=== PATIENT | male | born 1935 | race Caucasian/White ===

== ENCOUNTER 2018-04-10 05:31 | Inpatient (IN) ==
[2018-04-10] MEDS ORDERED: Metoprolol Tartrate 25 MG Tablet PO ONE (06:10)
[2018-04-10] MEDS ORDERED: Chlorhexidine Gluconate 2% 1 Pack (2 Cloths) TOPICAL ONE (06:10)
[2018-04-10] MEDS ORDERED: Sodium Chlor 0.9% Inj 500 ML IV.SIG SCH (07:00)
--- NOTE | 2018-04-10 07:27 | P.HPVS ---
History of Present Illness Chief Complaint: AAA History of Present Illness: 83 yo male with AAA that is intact and from which he is asymptomatic. He presents for EVAR. 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 - Inpatient Certification If this patient has been admitted as an Inpatient: I certify that the inpatient services were ordered in accordance with Medicare regulations governing the order. This includes certification that hospital inpatient services are reasonable and necessary and in the case of services not specified as inpatient-only under 42 CFR 419.22(n), that they are appropriately provided as inpatient services in accordance to with the 2-midnight benchmark under 43 CFR 412.3(e) Review of Systems Constitutional: Denies chills, Denies fever(s) PMFSH - History History Provided By: Patient - Medical History Medical History: Medical History (Last Updated 04/10/18 @ 07:24 by Cristofer Gregory MD) GERD (gastroesophageal reflux disease) Hypertension Thoracic aortic aneurysm without rupture Aneurysm - Surgical History Surgical History: Surgical History (Last Reviewed 04/10/18 @ 06:19 by Jessie Brooks) History of endovascular stent graft for abdominal aortic aneurysm (AAA) Hx of cataract removal with insertion of prosthetic lens Hx of inguinal hernia repair Hx of umbilical hernia repair - Tobacco History Second Hand Smoke Exposure: No Tobacco Use In Past 30 Days: No Smoking Status: Former smoker Tobacco Type: Cigarettes - Alcohol History How Often Do You Have a Drink Containing Alcohol: 4 or more times a week - Substance Use History Substance History: No History of Abuse - Travel History Recent Travel in the [place] Within the Last 8 Weeks: No Recent Travel Out of the Country Within the Last 8 Weeks: Yes Medications and Allergies Active Medications: Active Medications Lactated Ringer's (Lr 1000 Ml Inj) 1,000 mls @ 30 mls/hr IV.SIG .Q24H KARY Stop: 04/11/18 06:14 Last Admin: 04/10/18 06:50 Dose: 30 mls/hr Sodium Chloride (Ns Inj) 500 mls @ 30 mls/hr IV.SIG .Q10H KARY Last Admin: 04/10/18 07:21 Dose: Not Given Allergies Allergy/AdvReac Type Severity Reaction Status Date / Time bee venom protein (honey bee) Allergy Severe Swelling Verified 04/10/18 06:11 [Bee sting] erythromycin base Allergy Severe Blister Verified 04/10/18 06:11 Home Medications Medication Instructions Recorded Confirmed Type amlodipine 5 mg PO DAILY 04/09/18 04/10/18 History cyanocobalamin (vitamin B-12) 1 tab PO DAILY 04/09/18 04/10/18 History metoprolol tartrate 25 mg PO DAILY 04/09/18 04/10/18 History omeprazole 20 mg PO DAILY 04/09/18 04/10/18 History pravastatin 40 mg PO DAILY 04/09/18 04/10/18 History lopwvay-drpjztjuhrqgq-ztfvvezb 2 tab PO Q6H PRN 04/10/18 04/10/18 History [Excedrin Migraine] Physical Exam Vital Signs / I&O: Vital Signs 04/10/18 06:27 Temperature 98.2 F Pulse Rate 73 Respiratory Rate 20 Blood Pressure 142/81 H Pulse Oximetry 96 Intake & Output 04/09/18 04/10/18 04/10/18 18:59 06:59 18:59 Weight 93.2 kg 93.2 kg Other: Weight On Admission 93.2 kg Neuro: alert, no distress HEENT: NC/AT Neck: no JVD Heart: reg rate Lungs: clear Abdomen: nontender Caprini VTE Risk Assessment Caprini VTE Risk Assessment: No/Low Risk (score <= 1) (intra-op heparin) Caprini Risk Assessment Model: Point Value = 1 Point Value = 2 Point Value = 3 Point Value = 5 Age 41-60 Minor surgery BMI > 25 kg/m2 Swollen legs Varicose veins or History of unexplained or recurrent spontaneous Oral contraceptives or hormone replacement Sepsis (< 1 month) Serious lung disease, including pneumonia (< 1 month) Abnormal pulmonary function Acute myocardial infarction Congestive heart failure (< 1 month) History of inflammatory bowel disease Medical patient at bed rest Age 61-74 Arthroscopic surgery Major open surgery (> 45 min) Laparoscopic surgery (> 45 min) Malignancy Confined to bed (> 72 hours) Immobilizing plaster cast Central venous access Age >= 75 History of VTE Family history of VTE Factor V Leiden Prothrombin [id number] Lupus anticoagulant Anticardiolipin antibodies Elevated serum homocysteine Heparin-induced thrombocytopenia Other congenital or acquired thrombophilia Stroke (< 1 month) Elective arthroplasty Hip, pelvis, or leg fracture Acute spinal cord injury (< 1 month) Prophylaxis Regimen: Total Risk Factor Score Risk Level Prophylaxis Regimen 0-1 Low Early ambulation 2 Moderate Order ONE of the following: *Sequential Compression Device (SCD) *Heparin 5000 units SQ BID 3-4 Higher Order ONE of the following medications: *Heparin 5000 units SQ TID *Enoxaparin/Lovenox 40 mg SQ daily (WT < 150 kg, CrCl > 30 mL/min) *Enoxaparin/Lovenox 30 mg SQ daily (WT < 150 kg, CrCl > 10-29 mL/min) *Enoxaparin/Lovenox 30 mg SQ BID (WT < 150 kg, CrCl > 30 mL/min) AND/OR *Sequential Compression Device (SCD) 5 or more Highest Order ONE of the following medications: *Heparin 5000 units SQ TID (Preferred with Epidurals) *Enoxaparin/Lovenox 40 mg SQ daily (WT < 150 kg, CrCl > 30 mL/min) *Enoxaparin/Lovenox 30 mg SQ daily (WT < 150 kg, CrCl > 10-29 mL/min) *Enoxaparin/Lovenox 30 mg SQ BID (WT < 150 kg, CrCl > 30 mL/min) AND *Sequential Compression Device (SCD) Assessment and Plan - Assessment (1) AAA (abdominal aortic aneurysm) without rupture Code(s): I71.4 - Abdominal aortic aneurysm, without rupture Status: Acute - Plan 1. Spinal drain pre-op with IR (Dr. Dhillon) 2. EVAR today 3. Post op to [facility] for spinal cord protocol drain x24h with q1h neuro checks narcan gtt x 48h steroids perioperatively Pt and family understand the risks of the procedure and agree to proceed. To OR. Parada () [phone]
[2018-04-10] MEDS ORDERED: fentaNYL Citrate Inj 250 MCG/5 ML Ampul ONE (08:00)
[2018-04-10] MEDS ORDERED: ceFAZolin 2 GM Premix Inj 2 GM/50 ML PIGGYBACK IV.SIG ONE (08:16)
--- NOTE | 2018-04-10 08:29 | P.RAD ---
Post Procedure Progress Note - Pre Procedure Diagnosis (1) AAA (abdominal aortic aneurysm) without rupture - Post Procedure Diagnosis (1) AAA (abdominal aortic aneurysm) without rupture - Procedure Information Procedure Date: 04/10/18 Supervising Radiologist: Frankie Dhillon MD Estimated blood loss (mL): 0 Anesthesia: Conscious Sedation - Plan of Activity Patient to Unit: ROPU Patient Condition: Good See PACS Report for procedural detail/treatment.
--- NOTE | 2018-04-10 09:04 | IR ---
EXAM DATE: 04/10/2018 8:44 AM EST AGE/SEX: 83 years / Male INDICATIONS: Patient with thoracic aortic aneurysm in need of pre-op lumbar drain. CLINICAL DATA: This is the patient's initial encounter. Patient reports that signs and symptoms have been present for 1 day and indicates a pain score of 0/10. Location: , Laterality: MEDICAL/SURGICAL HISTORY: Hypertension. Gastroesophageal reflux disease. TAA w/o rupture, AAA Inguinal hernia repair. Umbilical hernia repair. AAA with stent graft repair COMPARISON: No prior exams available for comparison. FLUORO TIME (min): 0.7 IMAGE SERIES: 2 ACCESS SITE: L3-4 SEDATION TIME (min): 20 LUMBAR PUNCTURE TIME: 0816 hours MEDICATION(S): 1.5mg midazolam (Versed) IV 75mcg fentanyl (Sublimaze) IV DEVICE(S): 5 Cambodian lumbar drain catheter catheter tip placement T10 . . PROCEDURE: 1. Fluoroscopically guided lumbar drain placement. 2. Conscious sedation with continuous EKG and oximetry monitoring. The risks, benefits and alternatives to the procedure were explained and verbal and written consent w as obtained. The site was prepped in sterile fashion. Full sterile technique was used, including ca p, mask, sterile gloves and gown and a large sterile sheet. Hand hygiene and 2% chlorhexidine and/or betadine/alcohol prep was utilized per protocol for cutaneous antisepsis. The skin and subcutaneous tissues were infiltrated with local anesthetic solution. With fluoroscopic guidance the lumbar thecal sac was punctured with a 14 gauge Touhy needle and a lum bar drain was placed with its tip at the level as described above and the catheter was sutured in linda ce. CSF was identified returning from the catheter at the termination of the procedure. Conscious sedation was performed with the prescribed dosages and duration as above in the presence of an independent trained radiology nurse to assist in the monitoring of the patient. EKG and oximetry remained stable throughout the procedure. The patient tolerated the procedure well and there were n o complications. The patient was sent to post anesthesia recovery in stable condition. CONCLUSION: 1. Uncomplicated lumbar drain placement as above. Electronically signed by: Frankie Dhillon MD 04/10/2018 9:03 AM EST
[2018-04-10] MEDS ORDERED: Heparin 10,000 UNITS/10 ML Vial (for IV use) ONE (10:01)
[2018-04-10] MEDS ORDERED: ceFAZolin 1 GM Premix Inj 0 GM/0 ML FROZ.PIGGY IV.SIG ONE (10:01)
[2018-04-10] MEDS ORDERED: Protamine Sulfate Inj 50 MG/5 ML Vial ONE (10:01)
[2018-04-10] MEDS ORDERED: Heparin/NS PF Inj 500 ML ONE (10:01)
[2018-04-10] MEDS ORDERED: Naloxone Inj 0.4 MG/ML Vial ONE ×4 (10:11→11:22)
[2018-04-10] MEDS ORDERED: MethylPREDNISolone Sod Succinate Inj 125 MG/2 ML Vial ONE (10:46)
[2018-04-10] MEDS ORDERED: Iohexol 300 MG/ML 50 ML Vial (for Rad Diag) IVCONTRAST ONE (11:52)
[2018-04-10] MEDS ORDERED: Bisacodyl 10 MG Supp RECTAL PRN (12:03)
--- NOTE | 2018-04-10 12:03 | P.OP ---
- Preoperative Diagnosis (1) AAA (abdominal aortic aneurysm) without rupture - Postoperative Diagnosis (1) AAA (abdominal aortic aneurysm) without rupture Date of procedure: 04/10/18 Procedure: 1. EVAR ([id number] w 2 docking limbs) 2. R FINAL CANOE INSPECTOR Perclose (20F) 3. L FINAL CANOE INSPECTOR Perclose (14F) Implants: [employer] Zenith: 32-96, 16-74, 16-54 Surgeon: Cristofer Gregory MD Estimated blood loss (mL): 100 IV fluids (mL): 1,200 Urine output (mL): 160 Operation and Findings: successful repair of AAA + Doppler signals after B groin closure
[2018-04-10] MEDS ORDERED: fentaNYL Citrate Inj 100 MCG/2 ML Ampul ONE (12:52)
[2018-04-10] MEDS ORDERED: *Meperidine Inj 25 MG/ML Vial PERIprocedural Use ONLY ONE (13:18)
--- NOTE | 2018-04-10 17:24 | MP ---
cc: Cristofer Gregory MD DATE OF OPERATION: 04/10/2018 PREOPERATIVE DIAGNOSIS: Abdominal aortic aneurysm. POSTOPERATIVE DIAGNOSIS: Abdominal aortic aneurysm. PROCEDURE: 1. Endovascular exclusion of the abdominal aortic aneurysm with an aortobiiliac bifurcated device. 2. Right common femoral Perclose (20-Fijian). 3. Left common femoral Perclose (14-Fijian). ATTENDING SURGEON: Cristofer Gregory MD TESTER OPERATOR SURGEON: None. ANESTHESIA: General. INDICATIONS FOR PROCEDURE: Mr. Guzman is an 83-year-old gentleman with abdominal aortic aneurysm. He has a previous history of a thoracic stent and is taken to the operating room for endovascular AAA repair. Preoperatively, he had a spinal drain placed to decrease the chance of spinal cord ischemia. DESCRIPTION OF PROCEDURE: Informed consent was obtained. The patient was taken to the operating room and placed supine on the operating table. An appropriate timeout was taken to ensure the patient's identity, operative site and planned procedure. The administration of 2 grams of Ancef was initiated prior to skin incision and will be discontinued after single preoperative dose. Everyone in the room agreed with the timeout and we proceeded. He was prepped from his nipples to knees. Then, 21-gauge micropuncture needles were used to access both common femoral arteries. These were changed using Seldinger technique for a micropuncture sheath, through which a 0.035 STORQ wire was introduced and the micropuncture sheath was exchanged for a 5-Fijian sheath, which was used to dilate the skin and subcutaneous tract arteriotomy. Two Perclose ProGlide sutures were inserted into each groin and tagged. These were not tied down, but would be used later. An 8 x 10 cm sheath was placed on the right hand side. An 8 x 25 cm sheath was placed in the left hand side. The patient was systemically heparinized with 8000 units of IV heparin and throughout the remainder of the case, ACT was confirmed to be greater than 250. A catheter was placed up the right hand STORQ wire and the STORQ wire exchanged for a Lunderquist. Over the left hand STORQ wire, a marker straight Flush catheter was placed. The 8-Fijian sheath on the right was removed. Zana dilator was used to dilate the skin and subcutaneous tract and arteriotomy, and the main device, which was a PandaDoc 32 x 96 was introduced and oriented in the appropriate fashion. Interval aortogram showed the location of the renal arteries and the device was deployed so the proximal aspect of the fabric was immediately caudal to the renal arteries. The device was deployed down to the contralateral gate and then interval angiograms were performed to locate the renal arteries. The top cap for deploying the suprarenal bare stent was then deployed without difficulty. A Roadrunner wire and Cobra catheter were then used up the left hand side and exchanged for the Flush catheter and these were used to cannulate the contralateral gate, which was confirmed with an angiogram. A Lunderquist wire was then placed through the Cobra catheter and a marker catheter was then used and exchanged for the Cobra catheter to locate the left hypogastric artery. The contralateral limb, which was a 16 x 74 was introduced with sufficient overlap and deployed without difficulty. The remainder of the deployment system was removed, leaving the 14-Fijian sheath in the left hand side. The remainder of the Mynx system was then deployed and the top cap was recaptured. A marker catheter was placed through the 20-Fijian sheath on the right hand side through which the Mynx device had been deployed and the location of the right hypogastric artery was identified. The extension limb on the right, which was a 16 x 56 was then introduced and deployed so that there was sufficient overlap between it and the main graft as well as perfusion of the right hypogastric artery. The proximal and distal end, as well as all junctions were ballooned with a Coda balloon, and the completion angiogram showed excellent result with only a very sluggish type 1 endoleak. There was good apposition of the stent graft, both proximally and distally. The wires, catheters, and sheaths were removed and the groin Perclose were tied down. Hemostasis was achieved in the groins and there were dopplerable signals in the feet. The heparin was reversed with protamine. 4-0 Monocryl was placed in both groin incisions and the patient was then transported to recovery room in stable condition. I was present and scrubbed, and performed the entire procedure. MD RAUL Menard/aidan , 04:15 PM , 04:27 PM
--- NOTE | 2018-04-10 17:55 | P.CONCC ---
History of Present Illness Service: Critical care medicine Consult date: 04/10/18 Requesting Physician: Cristofer Gregory Reason for Consult: perioperative management of medical comorbidities Primary Care Provider: Azeem MD Art History of Present Illness: This is an 83-year-old male with aortic aneurysmal disease with prior endovascular stenting who presents for redo endovascular stenting. Preoperatively he underwent prophylactic lumbar spinal drain placement which was uncomplicated. He underwent uncomplicated endovascular aortic repair. He arrives to the recovery room in stable and extubated condition, arousing from anesthesia. Due to his arousal from anesthesia a complete review of systems is unobtainable. Limited review of systems is negative for chest pain, shortness of breath, headache, nausea, vomiting, sore throat. He denies weakness in his lower extremities. He has bilateral palpable pulses. He has a radial arterial line in place and a spinal drain in place draining clear CSF. Remainder the review systems is negative due to somnolence from anesthesia. Review of Systems unobtainable due to mental status (Arousing from anesthesia) PMFSH - History History Provided By: Patient, Medical Record - Medical History Medical History: Medical History (Last Reviewed 04/10/18 @ 17:50 by Brandt Waller MD) GERD (gastroesophageal reflux disease) Hypertension Thoracic aortic aneurysm without rupture Aneurysm - Surgical History Surgical History: Surgical History (Last Reviewed 04/10/18 @ 17:50 by Brandt Waller MD) Hx of cataract removal with insertion of prosthetic lens Hx of inguinal hernia repair Hx of umbilical hernia repair - Family History Family History: Family History (Last Updated 04/10/18 @ 17:50 by Brandt Waller MD) Other Family history non-contributory - Social History I have reviewed the patient's Social History: Yes - Tobacco History Second Hand Smoke Exposure: No Tobacco Use In Past 30 Days: No Smoking Status: Former smoker Tobacco Type: Cigarettes - Alcohol History How Often Do You Have a Drink Containing Alcohol: 4 or more times a week - Substance Use History Substance History: No History of Abuse - Travel History Recent Travel in the [place] Within the Last 8 Weeks: No Recent Travel Out of the Country Within the Last 8 Weeks: Yes Medications and Allergies Active Medications: Active Medications Al Hydroxide/Mg Hydroxide (Milk Of Magnesia Liq) 30 ml PO Q12H PRN PRN Reason: Mild Constipation Aspirin (Aspirin Chew) 81 mg PO DAILY KARY Bisacodyl (Dulcolax Supp) 10 mg RECTAL DAILY PRN PRN Reason: SEVERE CONSITIPATION Famotidine (Pepcid) 20 mg PO BID [facility] Heparin Sodium (Porcine) (Heparin Inj) 5,000 units SQ Q8H [facility] Hydromorphone HCl (Dilaudid) 2 mg PO Q4H PRN PRN Reason: PAIN SCALE 6 TO 10 Lactated Ringer's (Lr 1000 Ml Inj) 1,000 mls @ 30 mls/hr IV.SIG .Q24H [facility] Stop: 04/11/18 06:14 Last Admin: 04/10/18 06:50 Dose: 30 mls/hr Sodium Chloride (Ns Inj) 500 mls @ 30 mls/hr IV.SIG .Q10H [facility] Last Admin: 04/10/18 07:21 Dose: Not Given Naloxone HCl 4 mg/ Dextrose 250 mls @ 5.62 mls/hr IV.CONT CONT PRN PRN Reason: ABDOMINAL PAIN Lactulose (Lactulose Liq) 30 ml PO DAILY PRN PRN Reason: SEVERE CONSITIPATION Miscellaneous Information (Misc Nursing Information) 0 each OTHER UNSCH PRN PRN Reason: SEE LABEL COMMENTS Stop: 04/11/18 13:18 Oxycodone HCl (Roxicodone) 5 mg PO Q4H PRN PRN Reason: PAIN SCALE 1 TO 5 Pravastatin Sodium (Pravachol) 40 mg PO DAILY [facility] Senna/Docusate Sodium (Jing-Colace) 1 tab PO BID [facility] Sennosides (Senokot) 17.2 mg PO Q12H PRN PRN Reason: Moderate Constipation Allergies Allergy/AdvReac Type Severity Reaction Status Date / Time bee venom protein (honey bee) Allergy Severe Swelling Verified 04/10/18 06:11 [Bee sting] erythromycin base Allergy Severe Blister Verified 04/10/18 06:11 Home Medications Medication Instructions Recorded Confirmed Type amlodipine 5 mg PO DAILY 04/09/18 04/10/18 History cyanocobalamin (vitamin B-12) 1 tab PO DAILY 04/09/18 04/10/18 History metoprolol tartrate 25 mg PO DAILY 04/09/18 04/10/18 History omeprazole 20 mg PO DAILY 04/09/18 04/10/18 History pravastatin 40 mg PO DAILY 04/09/18 04/10/18 History qlngtmh-iorsxbcwbwbll-utgmzzpp 2 tab PO Q6H PRN 04/10/18 04/10/18 History [Excedrin Migraine] Physical Exam Vital signs: Vital Signs 04/10/18 06:27 04/10/18 08:45 04/10/18 09:15 Temperature 36.8 C 36.4 C Pulse Rate 73 72 73 Respiratory Rate 20 18 20 Blood Pressure 142/81 H 121/78 107/73 Pulse Oximetry 96 91 L 92 L 04/10/18 12:25 04/10/18 12:30 04/10/18 12:45 Temperature 36.3 C L Pulse Rate 55 L 62 56 L Respiratory Rate 20 20 18 Blood Pressure 137/70 172/74 H 142/82 H Pulse Oximetry 92 L 93 L 93 L 04/10/18 13:00 04/10/18 13:15 04/10/18 13:25 Temperature Pulse Rate 58 L 53 L Respiratory Rate 20 19 Blood Pressure 133/73 141/75 H Pulse Oximetry 96 96 96 04/10/18 13:30 04/10/18 14:00 04/10/18 14:15 Temperature 36.1 C L Pulse Rate 56 L 55 L 60 Respiratory Rate 21 18 17 Blood Pressure 135/72 135/74 149/78 H Pulse Oximetry 96 95 95 04/10/18 14:47 04/10/18 14:52 04/10/18 15:00 Temperature Pulse Rate 64 59 L Respiratory Rate 20 Blood Pressure 156/79 H 137/74 Pulse Oximetry 04/10/18 15:05 04/10/18 15:20 04/10/18 15:35 Temperature 36.5 C Pulse Rate 62 65 64 Respiratory Rate 22 19 18 Blood Pressure 145/80 H 138/74 137/80 Pulse Oximetry 93 L 91 L 94 L 04/10/18 15:50 04/10/18 16:00 04/10/18 16:05 Temperature Pulse Rate 65 66 68 Respiratory Rate 23 19 26 H Blood Pressure 139/79 137/71 Pulse Oximetry 93 L 94 L 95 04/10/18 16:20 04/10/18 16:35 04/10/18 16:50 Temperature Pulse Rate 68 66 67 Respiratory Rate 34 H 25 H 19 Blood Pressure 161/70 H 143/77 H 145/76 H Pulse Oximetry 92 L 96 95 04/10/18 17:00 04/10/18 17:05 04/10/18 17:20 Temperature Pulse Rate 66 69 79 Respiratory Rate 16 20 25 H Blood Pressure 142/79 H 143/81 H Pulse Oximetry 96 96 96 Intake & Output 04/09/18 04/10/18 04/10/18 18:59 06:59 18:59 Intake Total 1750 / 1750 Output Total 470 / 470 Balance 1280 / 1280 Weight 93.2 kg 93.2 kg Intake: IV 50 / 50 Heparin/NS PF Inj 500 ML @ 0 0 / 0 mls/hr .ROUTE .[facility] Rx#: [id number] Ancef 2 GM Premix Inj 2 gm In 50 / 50 50 ml @ 0 mls/hr IV.SIG .[facility] Rx#:[id number] Anesthesia Amount 1700 / 1700 Output: Estimated Blood Loss 100 / 100 Urine Amount (Catheter) 360 / 360 Indwelling Urethral Catheter 360 / 360 Wound Drainage # 1 Back Lumbar Other: Date of Last Bowel Movement 04/08/18 Weight On Admission 93.2 kg Narrative: GENERAL: Elderly male, lying in bed, arousing from anesthesia HEENT: Normocephalic. Atraumatic. Pupils equal, round, reactive, conjugate. Mucous membranes are moist NECK: Trachea is midline. There is no JVD. CHEST: Equal chest rise. Unlabored. Nasal cannula oxygen. CARDIOVASCULAR: Normal rate, regular balloon. Sinus. Arterial line in place, site clean dry and intact. ABDOMEN: Soft, nontender, nondistended. No guarding. MUSCULOSKELETAL: Pulses 2+. No peripheral edema. Groin site clean dry and intact without evidence of hematoma. Lumbar drain in place draining clear CSF. NEUROLOGICAL: RASS -2. Arousing from anesthesia. No focal deficits. Muscular skeletal strength 5/5 in all 4 extremities, and particularly in bilateral lower extremities. - Urinary Catheter Management Indwelling Urethral Catheter Cath placed during this visit: yes Reason for continuing: Hourly intake/output Insertion date: 04/10/18 Insertion time: 10:30 Assessment and Plan - Assessment and Plan Plan: Assessment: 83-year-old male postop day 0 status post redo endovascular aortic stenting. Admit to ICU. Frequent lower extremity neurovascular checks. Continue spinal drain open at 10 cm above the neuraxiom. aortic aneurysmal disease re-do Endovascular stenting 04/10 - anticoagulation per Dr. Gregory - frequent neurovascular checks - keep spinal drain open at [id number] - naloxone per protocol hypertension - hold home antihypertensives - allow permissive hypertension, goal sbp < 180, but prefer > 130 mmhg. hyperlipidemia - restart home statin GERD - home ppi - advance diet as tolerated SCDs keep in ICU. Critical care medicine will continue to follow while patient remains in the ICU.
[2018-04-10] MEDS: Famotidine 20 MG Tablet PO SCH (21:24)
[2018-04-10] MEDS: Senna/Docusate Sodium 8.6/50 MG Tablet PO SCH (21:24)
[2018-04-11 05:56] LABS: Hematocrit 34.4 % (39.0-51.0); Hemoglobin 11.8 gm/dL (13.0-17.0); Mean Corpuscular HGB Conc 34.4 % (32.0-36.0); Mean Corpuscular Hemoglobin 30.8 pg (27.0-34.0); Mean Corpuscular Volume 89.6 fL (80.0-100.0); Mean Platelet Volume 8.4 fL (7.0-11.0); Platelet Count 179 th/mm3 (150-450); Red Blood Count 3.84 mil/mm3 (4.50-5.90); Red Cell Distribution Width 15.2 % (11.6-17.2); White Blood Count 7.4 th/mm3 (4.0-11.0)
[2018-04-11 06:24] LABS: Calcium 7.8 mg/dL (8.5-10.1); Carbon Dioxide 24.1 meq/L (21.0-32.0); Potassium 4.4 meq/L (3.5-5.1)
--- NOTE | 2018-04-11 07:21 | P.PNVS ---
Subjective Post Op Day #: 1 Procedure: EVAR Subjective/Hospital Course: No problems overnight. Drain level raised about 3a for escalating drain output but pt without neurological sequelae (no deficits, no SINGH) looks great this morning Objective Vital Signs / I&O: Vital Signs 04/10/18 08:45 04/10/18 09:15 04/10/18 12:25 Temperature 97.6 F 97.4 F L Pulse Rate 72 73 55 L Respiratory Rate 18 20 20 Blood Pressure 121/78 107/73 137/70 Pulse Oximetry 91 L 92 L 92 L 04/10/18 12:30 04/10/18 12:45 04/10/18 13:00 Temperature Pulse Rate 62 56 L 58 L Respiratory Rate 20 18 20 Blood Pressure 172/74 H 142/82 H 133/73 Pulse Oximetry 93 L 93 L 96 04/10/18 13:15 04/10/18 13:25 04/10/18 13:30 Temperature Pulse Rate 53 L 56 L Respiratory Rate 19 21 Blood Pressure 141/75 H 135/72 Pulse Oximetry 96 96 96 04/10/18 14:00 04/10/18 14:15 04/10/18 14:47 Temperature 97 F L Pulse Rate 55 L 60 Respiratory Rate 18 17 Blood Pressure 135/74 149/78 H 156/79 H Pulse Oximetry 95 95 04/10/18 14:52 04/10/18 15:00 04/10/18 15:05 Temperature 97.7 F Pulse Rate 64 59 L 62 Respiratory Rate 20 22 Blood Pressure 137/74 145/80 H Pulse Oximetry 93 L 04/10/18 15:20 04/10/18 15:35 04/10/18 15:50 Temperature Pulse Rate 65 64 65 Respiratory Rate 19 18 23 Blood Pressure 138/74 137/80 139/79 Pulse Oximetry 91 L 94 L 93 L 04/10/18 16:00 04/10/18 16:05 04/10/18 16:20 Temperature Pulse Rate 66 68 68 Respiratory Rate 19 26 H 34 H Blood Pressure 137/71 161/70 H Pulse Oximetry 94 L 95 92 L 04/10/18 16:35 04/10/18 16:50 04/10/18 17:00 Temperature Pulse Rate 66 67 66 Respiratory Rate 25 H 19 16 Blood Pressure 143/77 H 145/76 H Pulse Oximetry 96 95 96 04/10/18 17:05 04/10/18 17:20 04/10/18 17:35 Temperature Pulse Rate 69 79 82 Respiratory Rate 20 25 H 34 H Blood Pressure 142/79 H 143/81 H 139/77 Pulse Oximetry 96 96 94 L 04/10/18 17:50 04/10/18 18:00 04/10/18 18:05 Temperature Pulse Rate 79 76 75 Respiratory Rate 25 H 21 20 Blood Pressure 134/76 138/74 Pulse Oximetry 95 95 95 04/10/18 18:20 04/10/18 18:35 04/10/18 18:50 Temperature Pulse Rate 79 88 78 Respiratory Rate 18 25 H 20 Blood Pressure 133/78 137/76 137/70 Pulse Oximetry 96 96 97 04/10/18 19:00 04/10/18 19:05 04/10/18 19:20 Temperature Pulse Rate 79 80 82 Respiratory Rate 20 19 18 Blood Pressure 136/75 137/78 Pulse Oximetry 96 96 96 04/10/18 19:35 04/10/18 19:50 04/10/18 20:00 Temperature Pulse Rate 82 80 82 Respiratory Rate 18 18 17 Blood Pressure 127/75 131/76 Pulse Oximetry 96 96 96 04/10/18 20:05 04/10/18 20:20 04/10/18 20:35 Temperature 97.5 F L Pulse Rate 81 85 79 Respiratory Rate 16 25 H 17 Blood Pressure 147/79 H 128/72 131/74 Pulse Oximetry 96 95 96 04/10/18 20:50 04/10/18 21:00 04/10/18 21:05 Temperature Pulse Rate 81 72 77 Respiratory Rate 20 30 H 31 H Blood Pressure 125/70 145/75 H Pulse Oximetry 96 96 97 04/10/18 21:20 04/10/18 21:35 04/10/18 21:50 Temperature Pulse Rate 77 83 79 Respiratory Rate 30 H 18 16 Blood Pressure 137/71 135/77 120/66 Pulse Oximetry 97 95 96 04/10/18 22:00 04/10/18 22:05 04/10/18 22:20 Temperature Pulse Rate 74 76 73 Respiratory Rate 16 20 16 Blood Pressure 132/67 119/60 Pulse Oximetry 96 96 95 04/10/18 22:35 04/10/18 22:50 04/10/18 23:00 Temperature Pulse Rate 77 79 67 Respiratory Rate 23 20 28 H Blood Pressure 126/70 131/75 Pulse Oximetry 96 94 L 96 04/10/18 23:05 04/10/18 23:20 04/10/18 23:35 Temperature Pulse Rate 68 69 67 Respiratory Rate 21 19 14 Blood Pressure 138/65 139/65 134/74 Pulse Oximetry 97 95 97 04/10/18 23:50 04/11/18 00:00 04/11/18 00:05 Temperature 97.5 F L Pulse Rate 76 77 73 Respiratory Rate 24 29 H 15 Blood Pressure 131/71 134/71 Pulse Oximetry 96 95 96 04/11/18 00:20 04/11/18 00:35 04/11/18 00:50 Temperature Pulse Rate 71 68 66 Respiratory Rate 25 H 23 21 Blood Pressure 129/69 137/71 138/76 Pulse Oximetry 96 96 96 04/11/18 01:00 04/11/18 01:05 04/11/18 01:20 Temperature Pulse Rate 65 76 67 Respiratory Rate 18 26 H 14 Blood Pressure 134/71 134/68 Pulse Oximetry 95 96 95 04/11/18 01:35 04/11/18 01:50 04/11/18 02:00 Temperature Pulse Rate 64 66 62 Respiratory Rate 15 17 19 Blood Pressure 139/66 124/66 Pulse Oximetry 96 96 96 04/11/18 02:05 04/11/18 02:20 04/11/18 02:35 Temperature Pulse Rate 70 64 69 Respiratory Rate 23 14 24 Blood Pressure 136/68 138/69 140/75 Pulse Oximetry 96 97 95 04/11/18 02:50 04/11/18 03:00 04/11/18 03:05 Temperature Pulse Rate 73 70 69 Respiratory Rate 21 18 17 Blood Pressure 141/81 H 143/77 H Pulse Oximetry 96 96 95 04/11/18 03:20 04/11/18 03:35 04/11/18 03:50 Temperature Pulse Rate 68 70 67 Respiratory Rate 38 H 21 24 Blood Pressure 141/75 H 132/70 139/72 Pulse Oximetry 95 95 96 04/11/18 04:00 04/11/18 04:05 04/11/18 04:20 Temperature 97.6 F Pulse Rate 66 62 63 Respiratory Rate 24 18 17 Blood Pressure 131/74 131/72 Pulse Oximetry 96 96 97 04/11/18 04:35 04/11/18 04:50 04/11/18 05:00 Temperature Pulse Rate 65 80 72 Respiratory Rate 20 26 H 31 H Blood Pressure 137/73 140/82 Pulse Oximetry 96 96 96 04/11/18 05:05 04/11/18 05:20 04/11/18 05:35 Temperature Pulse Rate 64 69 70 Respiratory Rate 29 H 22 26 H Blood Pressure 139/79 146/79 H 144/76 H Pulse Oximetry 95 96 96 04/11/18 05:50 04/11/18 06:00 04/11/18 06:05 Temperature Pulse Rate 66 71 67 Respiratory Rate 23 24 17 Blood Pressure 147/80 H 139/74 Pulse Oximetry 95 95 94 L 04/11/18 06:20 04/11/18 06:35 Temperature Pulse Rate 74 72 Respiratory Rate 28 H 17 Blood Pressure 167/79 H 152/80 H Pulse Oximetry 94 L 95 Intake & Output 04/10/18 04/11/18 04/11/18 18:59 06:59 18:59 Intake Total 2430 / 2430 350 / 350 Output Total 1070 / 1070 411 / 411 Balance 1360 / 1360 -61 / -61 Weight 93.2 kg 89.2 kg Intake: IV 50 / 50 Heparin/NS PF Inj 500 ML @ 0 0 / 0 mls/hr .ROUTE .STK-MED ONE Rx#: [id number] Ancef 2 GM Premix Inj 2 gm In 50 / 50 50 ml @ 0 mls/hr IV.SIG .STK- MED ONE Rx#:[id number] Oral 680 / 680 350 / 350 Anesthesia Amount 1700 / 1700 Output: Estimated Blood Loss 100 / 100 Urine Amount (Catheter) 960 / 960 325 / 325 Indwelling Urethral Catheter 960 / 960 325 / 325 Wound Drainage # 1 Back Lumbar Other: Date of Last Bowel Movement 04/08/18 04/08/18 Exam: resting comfortably, no distress neuro intact - ALMANZAR, lifts legs off bed groins with B ecchymosis but no hematoma Laboratory Results - last 24 hr 04/11/18 04/11/18 05:30 05:30 WBC 7.4 RBC 3.84 L Hgb 11.8 L Hct 34.4 L MCV 89.6 MCH 30.8 MCHC 34.4 RDW 15.2 Plt Count 179 MPV 8.4 Sodium 141 Potassium 4.4 Chloride 109 H Carbon Dioxide 24.1 Anion Gap 8 BUN 24 H Creatinine 1.54 H Estimated GFR 43 L Random Glucose 144 H Calcium 7.8 L D Assessment and Plan - Assessment (1) AAA (abdominal aortic aneurysm) without rupture Code(s): I71.4 - Abdominal aortic aneurysm, without rupture Status: Acute - Plan POD#1 s/p EVAR, neuro intact 1. Normalize including meds and diet 2. Clamp spinal drain at 11a and continue q1h neuro checks; if normal by Sat ( POD#2) will d/c drain Discharge Planning: Sat afternoon or Saturday, pending neuro status and gait stability
[2018-04-11] MEDS: Senna/Docusate Sodium 8.6/50 MG Tablet PO SCH ×2 (08:00→20:07)
[2018-04-11] MEDS: Famotidine 20 MG Tablet PO SCH ×2 (08:01→20:07)
[2018-04-11] MEDS: Heparin - SQ 10,000 UNITS/ML Vial SQ SCH ×3 (12:44→20:07)
--- NOTE | 2018-04-11 14:56 | P.PNCC ---
Subjective Subjective Remarks/Hospital Course: Hospital Course: This is an 83-year-old male with aortic aneurysmal disease with prior endovascular stenting who presents for redo endovascular stenting. Preoperatively he underwent prophylactic lumbar spinal drain placement which was uncomplicated. He underwent uncomplicated endovascular aortic repair. He arrives to the recovery room in stable and extubated condition, arousing from anesthesia. Due to his arousal from anesthesia a complete review of systems is unobtainable. Limited review of systems is negative for chest pain, shortness of breath, headache, nausea, vomiting, sore throat. He denies weakness in his lower extremities. He has bilateral palpable pulses. He has a radial arterial line in place and a spinal drain in place draining clear CSF. Remainder the review systems is negative due to somnolence from anesthesia. Subjective: 04/11: clinically doing well. drain currently clamped. no neuro changes. still on narcan drip. denies complaints. ROS otherwise negative. Objective Vital Signs / I&O: Vital Signs 04/10/18 14:52 04/10/18 15:00 04/10/18 15:05 Temperature 36.5 C Pulse Rate 64 59 L 62 Respiratory Rate 20 22 Blood Pressure 137/74 145/80 H Pulse Oximetry 93 L 04/10/18 15:20 04/10/18 15:35 04/10/18 15:50 Temperature Pulse Rate 65 64 65 Respiratory Rate 19 18 23 Blood Pressure 138/74 137/80 139/79 Pulse Oximetry 91 L 94 L 93 L 04/10/18 16:00 04/10/18 16:05 04/10/18 16:20 Temperature Pulse Rate 66 68 68 Respiratory Rate 19 26 H 34 H Blood Pressure 137/71 161/70 H Pulse Oximetry 94 L 95 92 L 04/10/18 16:35 04/10/18 16:50 04/10/18 17:00 Temperature Pulse Rate 66 67 66 Respiratory Rate 25 H 19 16 Blood Pressure 143/77 H 145/76 H Pulse Oximetry 96 95 96 04/10/18 17:05 04/10/18 17:20 04/10/18 17:35 Temperature Pulse Rate 69 79 82 Respiratory Rate 20 25 H 34 H Blood Pressure 142/79 H 143/81 H 139/77 Pulse Oximetry 96 96 94 L 04/10/18 17:50 04/10/18 18:00 04/10/18 18:05 Temperature Pulse Rate 79 76 75 Respiratory Rate 25 H 21 20 Blood Pressure 134/76 138/74 Pulse Oximetry 95 95 95 04/10/18 18:20 04/10/18 18:35 04/10/18 18:50 Temperature Pulse Rate 79 88 78 Respiratory Rate 18 25 H 20 Blood Pressure 133/78 137/76 137/70 Pulse Oximetry 96 96 97 04/10/18 19:00 04/10/18 19:05 04/10/18 19:20 Temperature Pulse Rate 79 80 82 Respiratory Rate 20 19 18 Blood Pressure 136/75 137/78 Pulse Oximetry 96 96 96 04/10/18 19:35 04/10/18 19:50 04/10/18 20:00 Temperature Pulse Rate 82 80 82 Respiratory Rate 18 18 17 Blood Pressure 127/75 131/76 Pulse Oximetry 96 96 96 04/10/18 20:05 04/10/18 20:20 04/10/18 20:35 Temperature 36.4 C L Pulse Rate 81 85 79 Respiratory Rate 16 25 H 17 Blood Pressure 147/79 H 128/72 131/74 Pulse Oximetry 96 95 96 04/10/18 20:50 04/10/18 21:00 04/10/18 21:05 Temperature Pulse Rate 81 72 77 Respiratory Rate 20 30 H 31 H Blood Pressure 125/70 145/75 H Pulse Oximetry 96 96 97 04/10/18 21:20 04/10/18 21:35 04/10/18 21:50 Temperature Pulse Rate 77 83 79 Respiratory Rate 30 H 18 16 Blood Pressure 137/71 135/77 120/66 Pulse Oximetry 97 95 96 04/10/18 22:00 04/10/18 22:05 04/10/18 22:20 Temperature Pulse Rate 74 76 73 Respiratory Rate 16 20 16 Blood Pressure 132/67 119/60 Pulse Oximetry 96 96 95 04/10/18 22:35 04/10/18 22:50 04/10/18 23:00 Temperature Pulse Rate 77 79 67 Respiratory Rate 23 20 28 H Blood Pressure 126/70 131/75 Pulse Oximetry 96 94 L 96 04/10/18 23:05 04/10/18 23:20 04/10/18 23:35 Temperature Pulse Rate 68 69 67 Respiratory Rate 21 19 14 Blood Pressure 138/65 139/65 134/74 Pulse Oximetry 97 95 97 04/10/18 23:50 04/11/18 00:00 04/11/18 00:05 Temperature 36.4 C L Pulse Rate 76 77 73 Respiratory Rate 24 29 H 15 Blood Pressure 131/71 134/71 Pulse Oximetry 96 95 96 04/11/18 00:20 04/11/18 00:35 04/11/18 00:50 Temperature Pulse Rate 71 68 66 Respiratory Rate 25 H 23 21 Blood Pressure 129/69 137/71 138/76 Pulse Oximetry 96 96 96 04/11/18 01:00 04/11/18 01:05 04/11/18 01:20 Temperature Pulse Rate 65 76 67 Respiratory Rate 18 26 H 14 Blood Pressure 134/71 134/68 Pulse Oximetry 95 96 95 04/11/18 01:35 04/11/18 01:50 04/11/18 02:00 Temperature Pulse Rate 64 66 62 Respiratory Rate 15 17 19 Blood Pressure 139/66 124/66 Pulse Oximetry 96 96 96 04/11/18 02:05 04/11/18 02:20 04/11/18 02:35 Temperature Pulse Rate 70 64 69 Respiratory Rate 23 14 24 Blood Pressure 136/68 138/69 140/75 Pulse Oximetry 96 97 95 04/11/18 02:50 04/11/18 03:00 04/11/18 03:05 Temperature Pulse Rate 73 70 69 Respiratory Rate 21 18 17 Blood Pressure 141/81 H 143/77 H Pulse Oximetry 96 96 95 04/11/18 03:20 04/11/18 03:35 04/11/18 03:50 Temperature Pulse Rate 68 70 67 Respiratory Rate 38 H 21 24 Blood Pressure 141/75 H 132/70 139/72 Pulse Oximetry 95 95 96 04/11/18 04:00 04/11/18 04:05 04/11/18 04:20 Temperature 36.4 C Pulse Rate 66 62 63 Respiratory Rate 24 18 17 Blood Pressure 131/74 131/72 Pulse Oximetry 96 96 97 04/11/18 04:35 04/11/18 04:50 04/11/18 05:00 Temperature Pulse Rate 65 80 72 Respiratory Rate 20 26 H 31 H Blood Pressure 137/73 140/82 Pulse Oximetry 96 96 96 04/11/18 05:05 04/11/18 05:20 04/11/18 05:35 Temperature Pulse Rate 64 69 70 Respiratory Rate 29 H 22 26 H Blood Pressure 139/79 146/79 H 144/76 H Pulse Oximetry 95 96 96 04/11/18 05:50 04/11/18 06:00 04/11/18 06:05 Temperature Pulse Rate 66 71 67 Respiratory Rate 23 24 17 Blood Pressure 147/80 H 139/74 Pulse Oximetry 95 95 94 L 04/11/18 06:20 04/11/18 06:35 04/11/18 06:50 Temperature Pulse Rate 74 72 72 Respiratory Rate 28 H 17 18 Blood Pressure 167/79 H 152/80 H 155/77 H Pulse Oximetry 94 L 95 95 04/11/18 07:00 04/11/18 07:05 04/11/18 07:20 Temperature Pulse Rate 70 68 65 Respiratory Rate 25 H 31 H 32 H Blood Pressure 163/84 H 136/75 Pulse Oximetry 96 96 93 L 04/11/18 07:35 04/11/18 07:50 04/11/18 08:00 Temperature Pulse Rate 69 69 67 Respiratory Rate 18 19 33 H Blood Pressure 157/74 H 157/80 H Pulse Oximetry 94 L 96 95 04/11/18 08:05 04/11/18 08:20 04/11/18 08:35 Temperature Pulse Rate 76 74 63 Respiratory Rate 37 H 17 27 H Blood Pressure 163/87 H 149/75 H 143/70 H Pulse Oximetry 95 95 94 L 04/11/18 08:50 04/11/18 09:00 04/11/18 09:05 Temperature Pulse Rate 66 69 84 Respiratory Rate 32 H 31 H 23 Blood Pressure 175/84 H 162/89 H Pulse Oximetry 95 95 94 L 04/11/18 09:20 04/11/18 09:35 04/11/18 09:50 Temperature Pulse Rate 79 77 79 Respiratory Rate 16 17 18 Blood Pressure 145/71 H 131/64 140/72 Pulse Oximetry 93 L 94 L 94 L 04/11/18 10:00 04/11/18 10:05 04/11/18 10:20 Temperature Pulse Rate 70 72 73 Respiratory Rate 21 31 H 22 Blood Pressure 143/75 H 140/71 Pulse Oximetry 94 L 94 L 93 L 04/11/18 10:35 04/11/18 10:50 04/11/18 11:00 Temperature Pulse Rate 67 69 71 Respiratory Rate 24 33 H 23 Blood Pressure 135/68 143/70 H Pulse Oximetry 93 L 93 L 93 L 04/11/18 11:05 04/11/18 11:20 04/11/18 11:35 Temperature Pulse Rate 68 70 73 Respiratory Rate 18 29 H 20 Blood Pressure 129/64 133/74 137/76 Pulse Oximetry 92 L 94 L 95 04/11/18 11:50 04/11/18 12:00 04/11/18 12:05 Temperature Pulse Rate 72 68 69 Respiratory Rate 24 30 H 24 Blood Pressure 148/88 H 137/69 Pulse Oximetry 95 95 93 L 04/11/18 12:20 04/11/18 12:35 04/11/18 12:50 Temperature Pulse Rate 67 71 69 Respiratory Rate 27 H 21 33 H Blood Pressure 133/71 134/77 146/68 H Pulse Oximetry 95 93 L 95 04/11/18 13:00 04/11/18 13:05 04/11/18 13:20 Temperature Pulse Rate 72 65 75 Respiratory Rate 31 H 17 17 Blood Pressure 135/69 163/72 H Pulse Oximetry 95 93 L 93 L 04/11/18 13:35 04/11/18 13:50 04/11/18 14:00 Temperature Pulse Rate 70 70 72 Respiratory Rate 38 H 44 H 33 H Blood Pressure 138/62 138/70 Pulse Oximetry 93 L 93 L 94 L 04/11/18 14:05 04/11/18 14:20 Temperature Pulse Rate 75 71 Respiratory Rate 21 23 Blood Pressure 140/68 136/65 Pulse Oximetry 93 L 92 L Intake & Output 04/10/18 04/11/18 04/11/18 18:59 06:59 18:59 Intake Total 2430 / 2430 350 / 350 1000 / 1000 Output Total 1070 / 1070 411 / 411 Balance 1360 / 1360 -61 / -61 1000 / 1000 Weight 93.2 kg 89.2 kg Intake: IV 50 / 50 1000 / 1000 Heparin/NS PF Inj 500 ML @ 0 0 / 0 mls/hr .ROUTE .STK-MED ONE Rx#: [id number] LR 1000 mL Inj 1,000 ML @ 30 1000 / 1000 mls/hr IV.SIG .Q24H [facility] Rx#: [id number] Ancef 2 GM Premix Inj 2 gm In 50 / 50 50 ml @ 0 mls/hr IV.SIG .STK- MED ONE Rx#:[id number] Oral 680 / 680 350 / 350 Anesthesia Amount 1700 / 1700 Output: Estimated Blood Loss 100 / 100 Urine Amount (Catheter) 960 / 960 325 / 325 Indwelling Urethral Catheter 960 / 960 325 / 325 Wound Drainage # 1 Back Lumbar Other: Date of Last Bowel Movement 04/08/18 04/08/18 04/08/18 Result Diagrams: 04/11/18 05:30 04/11/18 05:30 Objective Remarks: GENERAL: Elderly male, lying in bed, awake, alert, no acute distress. HEENT: Normocephalic. Atraumatic. Pupils equal, round, reactive, conjugate. Mucous membranes are moist NECK: Trachea is midline. There is no JVD. CHEST: Equal chest rise. Unlabored. Nasal cannula oxygen. CARDIOVASCULAR: Normal rate, regular rhythm. Sinus. Arterial line in place, site clean dry and intact. ABDOMEN: Soft, nontender, nondistended. No guarding. MUSCULOSKELETAL: Pulses 2+. No peripheral edema. Groin site clean dry and intact without evidence of hematoma. Lumbar drain in place draining clear CSF, currently clamped. NEUROLOGICAL: RASS 0. awake, alert. No focal deficits. Muscular skeletal strength 5/5 in all 4 extremities, and particularly in bilateral lower extremities. Assessment and Plan - Assessment and Plan Plan: Assessment: 83-year-old male postop day1 status post redo endovascular aortic stenting. keep in ICU. Frequent lower extremity neurovascular checks. agree with clamped drain. agree with d/c drain in AM if no changes. d/c art line. aortic aneurysmal disease re-do Endovascular stenting 04/10 - anticoagulation per Dr. Gregory - frequent neurovascular checks - clamp spinal drain. plan to d/c in AM if remains neuro intact. - naloxone per protocol: could consider d/c today or tomorrow. hypertension - hold home antihypertensives - allow permissive hypertension, goal sbp < 180 hyperlipidemia - home statin GERD - home ppi - advance diet as tolerated SCDs keep in ICU. Critical care medicine will continue to follow while patient remains in the ICU.
[2018-04-12] MEDS: Heparin - SQ 10,000 UNITS/ML Vial SQ SCH ×2 (03:05→12:13)
--- NOTE | 2018-04-12 07:21 | P.PNVS ---
Subjective Post Op Day #: 2 Procedure: EVAR Subjective/Hospital Course: drain clamped yesterday neuro intact no groin pain Objective Vital Signs / I&O: Vital Signs 04/11/18 07:35 04/11/18 07:50 04/11/18 08:00 Temperature Pulse Rate 69 69 67 Respiratory Rate 18 19 33 H Blood Pressure 157/74 H 157/80 H Pulse Oximetry 94 L 96 95 04/11/18 08:05 04/11/18 08:20 04/11/18 08:35 Temperature Pulse Rate 76 74 63 Respiratory Rate 37 H 17 27 H Blood Pressure 163/87 H 149/75 H 143/70 H Pulse Oximetry 95 95 94 L 04/11/18 08:50 04/11/18 09:00 04/11/18 09:05 Temperature Pulse Rate 66 69 84 Respiratory Rate 32 H 31 H 23 Blood Pressure 175/84 H 162/89 H Pulse Oximetry 95 95 94 L 04/11/18 09:20 04/11/18 09:35 04/11/18 09:50 Temperature Pulse Rate 79 77 79 Respiratory Rate 16 17 18 Blood Pressure 145/71 H 131/64 140/72 Pulse Oximetry 93 L 94 L 94 L 04/11/18 10:00 04/11/18 10:05 04/11/18 10:20 Temperature Pulse Rate 70 72 73 Respiratory Rate 21 31 H 22 Blood Pressure 143/75 H 140/71 Pulse Oximetry 94 L 94 L 93 L 04/11/18 10:35 04/11/18 10:50 04/11/18 11:00 Temperature Pulse Rate 67 69 71 Respiratory Rate 24 33 H 23 Blood Pressure 135/68 143/70 H Pulse Oximetry 93 L 93 L 93 L 04/11/18 11:05 04/11/18 11:20 04/11/18 11:35 Temperature Pulse Rate 68 70 73 Respiratory Rate 18 29 H 20 Blood Pressure 129/64 133/74 137/76 Pulse Oximetry 92 L 94 L 95 04/11/18 11:50 04/11/18 12:00 04/11/18 12:05 Temperature Pulse Rate 72 68 69 Respiratory Rate 24 30 H 24 Blood Pressure 148/88 H 137/69 Pulse Oximetry 95 95 93 L 04/11/18 12:20 04/11/18 12:35 04/11/18 12:50 Temperature Pulse Rate 67 71 69 Respiratory Rate 27 H 21 33 H Blood Pressure 133/71 134/77 146/68 H Pulse Oximetry 95 93 L 95 04/11/18 13:00 04/11/18 13:05 04/11/18 13:20 Temperature Pulse Rate 72 65 75 Respiratory Rate 31 H 17 17 Blood Pressure 135/69 163/72 H Pulse Oximetry 95 93 L 93 L 04/11/18 13:35 04/11/18 13:50 04/11/18 14:00 Temperature Pulse Rate 70 70 72 Respiratory Rate 38 H 44 H 33 H Blood Pressure 138/62 138/70 Pulse Oximetry 93 L 93 L 94 L 04/11/18 14:05 04/11/18 14:20 04/11/18 14:35 Temperature Pulse Rate 75 71 69 Respiratory Rate 21 23 21 Blood Pressure 140/68 136/65 134/69 Pulse Oximetry 93 L 92 L 92 L 04/11/18 14:50 04/11/18 15:00 04/11/18 15:05 Temperature Pulse Rate 68 72 73 Respiratory Rate 24 26 H 19 Blood Pressure 127/67 149/70 H Pulse Oximetry 92 L 92 L 92 L 04/11/18 15:20 04/11/18 15:35 04/11/18 15:50 Temperature Pulse Rate 71 71 74 Respiratory Rate 20 23 23 Blood Pressure 139/70 157/73 H 143/73 H Pulse Oximetry 94 L 92 L 93 L 04/11/18 16:00 04/11/18 16:05 04/11/18 16:20 Temperature Pulse Rate 73 69 71 Respiratory Rate 20 27 H 26 H Blood Pressure 139/72 154/74 H Pulse Oximetry 92 L 94 L 94 L 04/11/18 16:35 04/11/18 16:50 04/11/18 17:00 Temperature Pulse Rate 69 68 71 Respiratory Rate 19 19 28 H Blood Pressure 160/74 H 140/71 Pulse Oximetry 94 L 92 L 93 L 04/11/18 17:05 04/11/18 17:20 04/11/18 17:35 Temperature Pulse Rate 70 70 67 Respiratory Rate 34 H 31 H 21 Blood Pressure 141/76 H 151/83 H 146/76 H Pulse Oximetry 94 L 91 L 92 L 04/11/18 17:50 04/11/18 18:00 04/11/18 19:00 Temperature Pulse Rate 68 68 70 Respiratory Rate 20 33 H 24 Blood Pressure 159/81 H Pulse Oximetry 93 L 94 L 93 L 04/11/18 19:09 04/11/18 20:00 04/11/18 20:09 Temperature 97.6 F Pulse Rate 69 70 74 Respiratory Rate 30 H 14 18 Blood Pressure 142/68 H 168/87 H Pulse Oximetry 93 L 93 L 93 L 04/11/18 21:00 04/11/18 21:09 04/11/18 22:00 Temperature 97.6 F Pulse Rate 75 75 77 Respiratory Rate 19 18 19 Blood Pressure 143/84 H Pulse Oximetry 93 L 93 L 95 04/11/18 22:09 04/11/18 23:00 04/11/18 23:09 Temperature Pulse Rate 73 84 79 Respiratory Rate 15 45 H 17 Blood Pressure 163/83 H 173/86 H Pulse Oximetry 93 L 92 L 93 L 04/12/18 00:00 04/12/18 00:09 04/12/18 01:00 Temperature 97.5 F L Pulse Rate 81 74 76 Respiratory Rate 19 18 16 Blood Pressure 141/65 H Pulse Oximetry 94 L 93 L 92 L 04/12/18 01:09 04/12/18 02:00 04/12/18 02:09 Temperature Pulse Rate 77 91 H 79 Respiratory Rate 16 25 H 17 Blood Pressure 160/86 H 160/86 H Pulse Oximetry 91 L 04/12/18 03:00 04/12/18 03:09 04/12/18 04:00 Temperature 97.7 F Pulse Rate 74 78 73 Respiratory Rate 26 H 19 15 Blood Pressure 147/71 H Pulse Oximetry 04/12/18 04:09 04/12/18 05:00 04/12/18 05:13 Temperature Pulse Rate 76 78 71 Respiratory Rate 20 27 H 23 Blood Pressure 166/82 H 137/74 Pulse Oximetry 04/12/18 06:00 Temperature Pulse Rate 71 Respiratory Rate 15 Blood Pressure Pulse Oximetry Intake & Output 04/11/18 04/12/18 04/12/18 18:59 06:59 18:59 Intake Total 1680 / 1680 240 / 240 Output Total 550 / 550 1000 / 1000 Balance 1130 / 1130 -760 / -760 Weight 89.1 kg Intake: IV 1000 / 1000 LR 1000 mL Inj 1,000 ML @ 30 1000 / 1000 mls/hr IV.SIG .Q24H [facility] Rx#: [id number] Oral 680 / 680 240 / 240 Output: Urine 1000 / 1000 Urine Amount (Catheter) 550 / 550 Indwelling Urethral Catheter 550 / 550 Other: Date of Last Bowel Movement 04/08/18 04/12/18 # Bowel Movements 3 Exam: ALMANZAR, neuro intact groins with mild ecchymoses but no hematoma Assessment and Plan - Assessment (1) AAA (abdominal aortic aneurysm) without rupture Code(s): I71.4 - Abdominal aortic aneurysm, without rupture Status: Acute - Plan POD#2 s/p EVAR, neuro intact 1. d/c spinal drain 2. After period of BR after drain out, he can ambulate ad wilmer 3. D/C today if ambulating ok after drain out Discharge Planning: later today if neuro unchanged after drain out
[2018-04-12] MEDS: Famotidine 20 MG Tablet PO SCH (08:47)
[2018-04-12] MEDS: Senna/Docusate Sodium 8.6/50 MG Tablet PO SCH (08:47)
[2018-04-12 14:02] VITALS: BP 143/75; TEMP 97.9
[2018-04-12 14:03] VITALS: PULSE 67; RESP 27; O2SAT 96
--- NOTE | 2018-04-12 14:30 | P.DS ---
Discharge Summary - Admission Date 04/10/18 05:31 - Admission Diagnosis (1) AAA (abdominal aortic aneurysm) without rupture - Discharge Diagnosis (1) AAA (abdominal aortic aneurysm) without rupture Status: Acute - Summary Brief History from admission: 83 yo male with AAA that is intact and from which he is asymptomatic. He presents for EVAR. 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 Procedure: EVAR Significant Findings: The patient tolerated his procedure well. Because of his history of TEVAR with complete thoracic aortic coverage, I had a spinal drain placed preoperatively and dawood-operatively he was placed on the spinal cord protection protocol. For 24 hours the drain was "open" and for 24 hours it was clamped. It was then removed and he remained neurologically intact. Hospital Course: Neuro intact throughout hospitalization. Ready for d/c POD#2. - Discharge Instructions No heavy lifting or strenuous activity for several days. Our office will call with your follow-up appointment on Saturday, which will be scheduled for approximately 1m from now. Any questions or concerns: Call [facility] [phone] Discharge Plan - Discharge Disposition Patient Disposition: Discharge Home - Discharge Condition Condition: Good - Discharge Order Discharge Orders: Discharge Order (Routine); Ordered 04/12/18 Ordered By: Cristofer Gregory - Discharge Details Anticipated Discharge Date: 04/12/18 - Physicians Team Attending Provider: Cristofer Gregory Other Providers: Brandt Waller MD - Rxs /Orders / Referrals /Forms Prescriptions: Continue amlodipine 5 mg Tablet 5 mg PO DAILY [id number] [Excedrin Migraine] 250-250-65 mg Tablet 2 tab PO Q6H PRN (Reason: Acute Pain) metoprolol tartrate 25 mg Tablet 25 mg PO DAILY pravastatin 40 mg Tablet 40 mg PO DAILY No Action cyanocobalamin (vitamin B-12) 1,000 mcg Tablet 1 tab PO DAILY omeprazole 20 mg Tablet,Delayed Release (Dr/Ec) 20 mg PO DAILY Referrals: Mr Alden Art MD [Other] - See Instructions
--- NOTE | 2018-04-12 15:21 | P.PNCC ---
Subjective Subjective Remarks/Hospital Course: Hospital Course: This is an 83-year-old male with aortic aneurysmal disease with prior endovascular stenting who presents for redo endovascular stenting. Preoperatively he underwent prophylactic lumbar spinal drain placement which was uncomplicated. He underwent uncomplicated endovascular aortic repair. He arrives to the recovery room in stable and extubated condition, arousing from anesthesia. Due to his arousal from anesthesia a complete review of systems is unobtainable. Limited review of systems is negative for chest pain, shortness of breath, headache, nausea, vomiting, sore throat. He denies weakness in his lower extremities. He has bilateral palpable pulses. He has a radial arterial line in place and a spinal drain in place draining clear CSF. Remainder the review systems is negative due to somnolence from anesthesia. Subjective: 04/11: clinically doing well. drain currently clamped. no neuro changes. still on narcan drip. denies complaints. ROS otherwise negative. 04/12: doing well. wants to go home. neuro intact. I pulled lumbar drain on my evaluation- came out with ease, tip intact, no drainage. dressing applied. ROS negative. Objective Vital Signs / I&O: Vital Signs 04/11/18 15:20 04/11/18 15:35 04/11/18 15:50 Temperature Pulse Rate 71 71 74 Respiratory Rate 20 23 23 Blood Pressure 139/70 157/73 H 143/73 H Pulse Oximetry 94 L 92 L 93 L 04/11/18 16:00 04/11/18 16:05 04/11/18 16:20 Temperature Pulse Rate 73 69 71 Respiratory Rate 20 27 H 26 H Blood Pressure 139/72 154/74 H Pulse Oximetry 92 L 94 L 94 L 04/11/18 16:35 04/11/18 16:50 04/11/18 17:00 Temperature Pulse Rate 69 68 71 Respiratory Rate 19 19 28 H Blood Pressure 160/74 H 140/71 Pulse Oximetry 94 L 92 L 93 L 04/11/18 17:05 04/11/18 17:20 04/11/18 17:35 Temperature Pulse Rate 70 70 67 Respiratory Rate 34 H 31 H 21 Blood Pressure 141/76 H 151/83 H 146/76 H Pulse Oximetry 94 L 91 L 92 L 04/11/18 17:50 04/11/18 18:00 04/11/18 19:00 Temperature Pulse Rate 68 68 70 Respiratory Rate 20 33 H 24 Blood Pressure 159/81 H Pulse Oximetry 93 L 94 L 93 L 04/11/18 19:09 04/11/18 20:00 04/11/18 20:09 Temperature 36.4 C Pulse Rate 69 70 74 Respiratory Rate 30 H 14 18 Blood Pressure 142/68 H 168/87 H Pulse Oximetry 93 L 93 L 93 L 04/11/18 21:00 04/11/18 21:09 04/11/18 22:00 Temperature 36.4 C Pulse Rate 75 75 77 Respiratory Rate 19 18 19 Blood Pressure 143/84 H Pulse Oximetry 93 L 93 L 95 04/11/18 22:09 04/11/18 23:00 04/11/18 23:09 Temperature Pulse Rate 73 84 79 Respiratory Rate 15 45 H 17 Blood Pressure 163/83 H 173/86 H Pulse Oximetry 93 L 92 L 93 L 04/12/18 00:00 04/12/18 00:09 04/12/18 01:00 Temperature 36.4 C L Pulse Rate 81 74 76 Respiratory Rate 19 18 16 Blood Pressure 141/65 H Pulse Oximetry 94 L 93 L 92 L 04/12/18 01:09 04/12/18 02:00 04/12/18 02:09 Temperature Pulse Rate 77 91 H 79 Respiratory Rate 16 25 H 17 Blood Pressure 160/86 H 160/86 H Pulse Oximetry 91 L 04/12/18 03:00 04/12/18 03:09 04/12/18 04:00 Temperature 36.5 C Pulse Rate 74 78 73 Respiratory Rate 26 H 19 15 Blood Pressure 147/71 H Pulse Oximetry 04/12/18 04:09 04/12/18 05:00 04/12/18 05:13 Temperature Pulse Rate 76 78 71 Respiratory Rate 20 27 H 23 Blood Pressure 166/82 H 137/74 Pulse Oximetry 04/12/18 06:00 04/12/18 06:09 04/12/18 07:00 Temperature Pulse Rate 71 73 77 Respiratory Rate 15 16 20 Blood Pressure 156/86 H Pulse Oximetry 04/12/18 07:09 04/12/18 08:00 04/12/18 08:09 Temperature 36.4 C Pulse Rate 73 71 87 Respiratory Rate 21 16 31 H Blood Pressure 151/83 H 155/84 H Pulse Oximetry 04/12/18 09:00 04/12/18 09:09 04/12/18 10:00 Temperature Pulse Rate 80 86 87 Respiratory Rate 29 H 29 H 22 Blood Pressure 168/95 H Pulse Oximetry 04/12/18 10:09 04/12/18 11:09 04/12/18 12:00 Temperature 36.6 C Pulse Rate 86 74 70 Respiratory Rate 23 33 H 31 H Blood Pressure 139/72 151/69 H Pulse Oximetry 97 04/12/18 12:09 04/12/18 13:09 04/12/18 13:54 Temperature Pulse Rate 66 78 65 Respiratory Rate 39 H 24 Blood Pressure 131/71 136/65 143/75 H Pulse Oximetry 93 L 94 L 04/12/18 14:00 Temperature Pulse Rate 67 Respiratory Rate 27 H Blood Pressure Pulse Oximetry 96 Intake & Output 04/11/18 04/12/18 04/12/18 18:59 06:59 18:59 Intake Total 1680 / 1680 240 / 240 Output Total 550 / 550 1000 / 1000 Balance 1130 / 1130 -760 / -760 Weight 89.1 kg Intake: IV 1000 / 1000 LR 1000 mL Inj 1,000 ML @ 30 1000 / 1000 mls/hr IV.SIG .Q24H KARY Rx#: [id number] Oral 680 / 680 240 / 240 Output: Urine 1000 / 1000 Urine Amount (Catheter) 550 / 550 Indwelling Urethral Catheter 550 / 550 Other: Date of Last Bowel Movement 04/08/18 04/12/18 04/12/18 # Bowel Movements 3 Result Diagrams: 04/11/18 05:30 04/11/18 05:30 Objective Remarks: GENERAL: Elderly male, sitting in bed, awake, alert, no acute distress. HEENT: Normocephalic. Atraumatic. Pupils equal, round, reactive, conjugate. Mucous membranes are moist NECK: Trachea is midline. There is no JVD. CHEST: Equal chest rise. Unlabored. room air. CARDIOVASCULAR: Normal rate, regular rhythm. Sinus. ABDOMEN: Soft, nontender, nondistended. No guarding. MUSCULOSKELETAL: Pulses 2+. No peripheral edema. Groin site clean dry and intact without evidence of hematoma. NEUROLOGICAL: RASS 0. awake, alert. No focal deficits. Muscular skeletal strength 5/5 in all 4 extremities, and particularly in bilateral lower extremities. Assessment and Plan - Assessment and Plan Plan: Assessment: 83-year-old male postop day 2 status post redo endovascular aortic stenting. stable from my standpoint to d/c home. aortic aneurysmal disease re-do Endovascular stenting 04/10 - anticoagulation per Dr. Gregory - frequent neurovascular checks - d/c drain today on my eval. - d/c naloxone hypertension - hold home antihypertensives - allow permissive hypertension, goal sbp < 180 hyperlipidemia - home statin GERD - home ppi - advance diet as tolerated SCDs d/c home. Critical care medicine will sign off.
== END 2018-04-12 15:31 | disposition home or self-care (01) ==
LOC: HSDI 05:31 → N03 14:33
PROVIDERS: ADMIT Surgery; ATTEND Surgery